=== PATIENT | female | born 1990 | race American Indian/Alaskan Native ===

== ENCOUNTER 2020-08-05 20:23 | Emergency (ER) | payer BC ==
--- NOTE | 2020-08-05 20:29 | Emergency Department Report ---
Blank Doc - Documentation Documentation: 30-year-old female that presents with right ankle pain s/p twisting it. This initial assessment/diagnostic orders/clinical plan/treatment(s) is/are subject to change based on patient's health status, clinical progression and re- assessment by fellow clinical providers in the ED. Further treatment and workup at subsequent clinical providers discretion. Patient/guardians urged not to elope from the ED as their condition may be serious if not clinically assessed and managed. Initial orders include: 1- Patient sent to [facility] for further evaluation and treatment 2- xrays
[2020-08-05 20:36] VITALS: BP 205/116
== END 2020-08-05 21:00 | disposition left against medical advice (07) ==
LOC: ED 20:23
DX: M25.571 Pain in right ankle and joints of right foot (principal); Z53.21 Procedure and treatment not carried out due to patient leaving prior to being seen by health care provider